=== PATIENT | female | born 1985 | race Caucasian/White ===

== ENCOUNTER → 2016-12-07 | Outpatient (CLI) | payer BC ==
[~2016-12-07] MED LIST: BCPILLS PO; CPR500 PO; METO-157 PO; PHEN-876 PO; SULF800T23 PO
== END | disposition home or self-care (01) ==
LOC: C.PAPS 11:23
PROVIDERS: ATTEND Physician Assistant
DX: Z12.4 Encounter for screening for malignant neoplasm of cervix (principal); Z11.51 Encounter for screening for human papillomavirus (HPV)